=== PATIENT | male | born 1975 | race Caucasian/White ===

== ENCOUNTER 2017-03-09 09:18 | Emergency (ER) | payer SELFPAY, OTHER ==
[2017-03-09] MEDS: METHYLPREDNISOLONE 125 MG INJ IV (10:00)
[2017-03-09] MEDS: KETOROLAC 30 MG INJ IV (10:01)
[2017-03-09] MEDS: SOD CHLORIDE 0.9% 1,000 ML IV (10:01)
== END 2017-03-09 12:27 | disposition home or self-care (01) ==
LOC: FTE 12:27
DX: J02.0 Streptococcal pharyngitis (principal); M54.16 Radiculopathy, lumbar region; R05 Cough
CPT/HCPCS: 71045; 87400; 96374; 96375; 99284-25

== ENCOUNTER 2017-03-14 08:28 | Emergency (ER) | payer MEDICAID, OTHER ==
[2017-03-14 09:59] LABS: ADD MAN DIFF? NO
[2017-03-14 10:12] LABS: WHITE BLOOD COUNT 11.4 10^3/ul (4.8-10.8)
[2017-03-14 10:12] LABS: BASOPHILS % 0.3 % (0.0-2.0); EOSINOPHILS # 0.1 10^3/ul (0.0-0.5); EOSINOPHILS % 0.4 % (0.0-7.0); HEMATOCRIT 44.1 % (42.0-52.0); HEMOGLOBIN 15.1 g/dl (14.0-18.0); LYMPHOCYTES # 2.5 10^3/ul (0.8-2.9); LYMPHOCYTES % 22.2 % (15.0-51.0); MEAN CORPUSCULAR HEMOGLOBIN 29.3 pg (29.0-33.0); MEAN CORPUSCULAR HGB CONC 34.2 g/dl (32.0-37.0); MEAN CORPUSCULAR VOLUME 85.6 fl (82.0-101.0); MEAN PLATELET VOLUME 10.3 fl (7.4-10.4); MONOCYTE # 0.9 10^3/ul (0.3-0.9); MONOCYTES % 7.9 % (0.0-11.0); NEUTROPHIL # 7.8 10^3/ul (1.6-7.5); NEUTROPHILS % 68.8 % (39.0-77.0); PLATELET COUNT 295 10^3/UL (140-415); RED BLOOD COUNT 5.15 10^6/ul (4.70-6.10); RED CELL DISTRIBUTION WIDTH 11.7 % (11.5-14.5)
[2017-03-14 10:32] LABS: ALANINE AMINOTRANSFERASE 29 IU/L (13-69); ALKALINE PHOSPHATASE 55 IU/L (42-121); ANION GAP 16 (8-16); ASPARTATE AMINO TRANSFERASE 16 IU/L (15-46); BILIRUBIN,INDIRECT 0.3 mg/dl (0-1.1); BILIRUBIN,TOTAL 0.3 mg/dl (0.2-1.3); BLOOD UREA NITROGEN 15 mg/dl (7-20); CALCIUM 9.2 mg/dl (8.4-10.2); CARBON DIOXIDE 26 mmol/L (21-31); CHLORIDE 105 mmol/L (97-110); CREATININE 0.81 mg/dl (0.61-1.24); GLUCOSE 109 mg/dl (70-220); POTASSIUM 3.6 mmol/L (3.5-5.1); SODIUM 143 mmol/L (135-144)
[2017-03-14 11:21] LABS: ALBUMIN/GLOBULIN RATIO 1.33
== END 2017-03-14 11:00 | disposition home or self-care (01) ==
LOC: FTE 08:28
DX: R20.2 Paresthesia of skin (principal)
CPT/HCPCS: 80053; 85025; 99283